=== PATIENT | female | born 1995 | race African-American/Black ===

== ENCOUNTER 2018-11-07 00:58 | Emergency (ER) | payer BC ==
[2018-11-07 02:51] LABS: ABS Eosinophils 0.1 10^3/ul (0-0.6); ABS Lymphocytes 0.4 10^3/ul (1.0-4.8); ABS Monocytes 0.5 10^3/ul (0-0.8); ABS Neutrophils 7.9 10^3/ul (1.5-7.7); Eosinophil % 0.6 %; Hematocrit 42 % (35-47); Hemoglobin 13.9 g/dL (12.0-16.0); Lymphocyte % 4.7 %; Mean Corpuscular HGB Conc 34 g/dL (31-36); Mean Corpuscular Hemoglobin 29 pg (27-31); Mean Corpuscular Volume 87 fL (80-97); Mean Platelet Volume 8.9 fL (7.4-10.4); Platelet Count 219 10^3/uL (150-450); Red Blood Count 4.77 10^6 /uL (3.70-4.87); Red Cell Distribution Width 14 % (10-15); White Blood Count 8.9 10^3/uL (3.5-10.8)
[2018-11-07 03:00] LABS: INR 1.05 (0.82-1.09)
[2018-11-07 03:10] LABS: ALT 25 U/L (7-52); AST 21 U/L (13-39); Albumin 4.3 g/dL (3.2-5.2); Albumin/Globulin Ratio 1.4 (1-3); Alkaline Phosphatase 71 U/L (34-104); Anion Gap 9 mmol/L (2-11); BUN/Creatinine Ratio 22.5 (8-20); Blood Urea Nitrogen 20 mg/dL (6-24); CO2 Carbon Dioxide 25 mmol/L (22-32); Calcium 9.5 mg/dL (8.6-10.3); Chloride 105 mmol/L (101-111); EGFR Non-African American 79.3 (>60); Glucose 107 mg/dL (70-100); Potassium 3.9 mmol/L (3.5-5.0); Sodium 139 mmol/L (135-145); Total Protein 7.3 g/dL (6.4-8.9)
[2018-11-07] MEDS ORDERED: Ondansetron TAB* 4 MG PO ONE (03:16)
[2018-11-07 03:17] LABS: HCG Pregnancy < 0.60 mIU/mL
[2018-11-07 03:32] LABS: Acetaminophen < 15 mcg/mL; Salicylate < 2.50 mg/dL (<30)
--- NOTE | 2018-11-07 03:42 | ED ---
Abdominal Pain/Female - HPI Summary HPI Summary: This patient is a 23 year old F presenting to [facility] accompanied by male friend with a chief complaint of nausea and vomiting since 2129 today, 11/06/18. Symptoms aggravated by noting. Symptoms alleviated by nothing. Patient reports taking Keflex (never taken before) starting this morning due to a cyst in right axilla. Pt reports the 2nd dose at 1715 made her nauseous. Pt reports mild cramping lower abdominal pain. Pt reports she took Tylenol for the concussion that was 10/28/18-10/31/18 but none recently. Patient denies diarrhea , fevers, abnormal bleeding, discharge, dysuria. Pt denies any medical problems and shx: adenoids removed. - History of Current Complaint Chief Complaint: EDNauseaVomitDiarrh Stated Complaint: NAUSEA DUE TO MEDS PER PT Time Seen by Provider: 11/07/18 01:57 Hx Obtained From: Patient Onset/Duration: Lasting Hours, Still Present Timing: Constant Pain Intensity: 8 Pain Scale Used: 0-10 Numeric Aggravating Factor(s): Nothing Alleviating Factor(s): Nothing Associated Signs and Symptoms: Positive: Nausea, Vomiting, Other: - abdominal pain; denies dysuria. Negative: Fever, Vaginal Bleeding, Vaginal Discharge, Diarrhea Allergies/Adverse Reactions: Allergies Allergy/AdvReac Type Severity Reaction Status Date / Time No Known Allergies Allergy Verified 12/14/16 12:42 Home Medications: Home Medications Cephalexin CAP* [Keflex 500 CAP*] 500 mg PO TID 11/07/18 [History Confirmed ] PMH/Surg Hx/FS Hx/Imm Hx Sensory History: Denies: Hx Legally Blind, Hx Deafness Opthamlomology History: Denies: Hx Legally Blind EENT History: Denies: Hx Deafness - Surgical History Surgery Procedure, Year, and Place: adenoidectomy Infectious Disease History: No Infectious Disease History: Denies: Traveled Outside the [place] in Last 30 Days - Social History Alcohol Use: Rare Hx Substance Use: No Substance Use Type: Reports: None Hx Tobacco Use: No Smoking Status (MU): Never Smoked Tobacco Review of Systems Negative: Fever Positive: Abdominal Pain, Vomiting, Nausea. Negative: Diarrhea Positive: other - denies abnormal bleeding, discharge. Negative: dysuria All Other Systems Reviewed And Are Negative: Yes Physical Exam - Summary Physical Exam Summary: Constitutional: Well-developed, Well-nourished, Alert. (-) Distressed Skin: Warm, Dry (no cyst of axilla noted) HENT: Normocephalic; Atraumatic Eyes: Conjunctiva normal Neck: Musculoskeletal ROM normal neck. (-) JVD, (-) Stridor, (-) Nuchal rigidity Cardio: Rhythm regular, rate normal, Heart sounds normal; Intact distal pulses; Radial pulses are 2+ and symmetric. (-) Murmur Pulmonary/Chest wall: Effort normal. (-) Respiratory distress, (-) Wheezes, (-) Rales Abd: Soft, (-) tenderness, (-) Distension, (-) Guarding, (-) Rebound Musculoskeletal: (-) Edema Lymph: (-) Cervical adenopathy Neuro: Alert, Oriented x3 Psych: Mood and affect Normal Triage Information Reviewed: Yes Vital Signs On Initial Exam: Initial Vitals Temp Pulse Resp BP Pulse Ox 98.5 F 72 16 137/80 100 11/07/18 01:04 11/07/18 01:04 11/07/18 01:04 11/07/18 01:04 11/07/18 01:04 Vital Signs Reviewed: Yes Diagnostics - Vital Signs Vital Signs Temp Pulse Resp BP Pulse Ox 11/07/18 01:04 98.5 F 72 16 137/80 100 - Laboratory Lab Results: Lab Results 11/07/18 11/07/18 11/07/18 Range/Units 02:29 02:29 02:29 WBC 8.9 (3.5-10.8) 10^3/uL RBC 4.77 (3.70-4.87) 10^6 /uL Hgb 13.9 (12.0-16.0) g/dL Hct 42 (35-47) % MCV 87 (80-97) fL MCH 29 (27-31) pg MCHC 34 (31-36) g/dL RDW 14 (10-15) % Plt Count 219 (150-450) 10^3/uL MPV 8.9 (7.4-10.4) fL Neut % (Auto) 88.7 % Lymph % (Auto) 4.7 % Orange % (Auto) 5.8 % Eos % (Auto) 0.6 % Baso % (Auto) 0.2 % Absolute Neuts (auto) 7.9 H (1.5-7.7) 10^3/ul Absolute Lymphs (auto) 0.4 L (1.0-4.8) 10^3/ul Absolute Monos (auto) 0.5 (0-0.8) 10^3/ul Absolute Eos (auto) 0.1 (0-0.6) 10^3/ul Absolute Basos (auto) 0.0 (0-0.2) 10^3/ul Absolute Nucleated RBC 0.0 10^3/ul Nucleated RBC % 0.0 INR (Anticoag Therapy) 1.05 (0.82-1.09) Sodium 139 (135-145) mmol/L Potassium 3.9 (3.5-5.0) mmol/L Chloride 105 (101-111) mmol/L Carbon Dioxide 25 (22-32) mmol/L Anion Gap 9 (2-11) mmol/L BUN 20 (6-24) mg/dL Creatinine 0.89 (0.51-0.95) mg/dL Est GFR ( Amer) 96.0 (>60) Est GFR (Non-Af Amer) 79.3 (>60) BUN/Creatinine Ratio 22.5 H (8-20) Glucose 107 H (70-100) mg/dL Calcium 9.5 (8.6-10.3) mg/dL Total Bilirubin 0.50 (0.2-1.0) mg/dL AST 21 (13-39) U/L ALT 25 (7-52) U/L Alkaline Phosphatase 71 (34-104) U/L Total Protein 7.3 (6.4-8.9) g/dL Albumin 4.3 (3.2-5.2) g/dL Globulin 3.0 (2-4) g/dL Albumin/Globulin Ratio 1.4 (1-3) Beta HCG, Quant < 0.60 mIU/mL Salicylates < 2.50 (<30) mg/dL Acetaminophen < 15 mcg/mL Result Diagrams: 11/07/18 02:29 11/07/18 02:29 Lab Statement: Any lab studies that have been ordered have been reviewed, and results considered in the medical decision making process. Re-Evaluation - Re-Evaluation First Eval Re-Evaluation Time: 04:37 Comment: Pt tolerated PO under Zofran. Abdominal Pain Fem Course/Dx - Course Course Of Treatment: 23-year-old female who presents with nausea vomiting and cramping abdominal pain for 1 day. Physical exam with a well-appearing female, mild lower abdominal tenderness. - Patient has been taking Keflex for a cyst under her right armpit. Nausea could be secondary to Keflex use however she tolerated the keflex this am. - labs unremarkable. Had been taking tylenol for several days (last took 10/31), Neg tylenol level here, normal LFTs and INR. - No RLQ tenderness or fevers to suggest appendicitis, no pelvic pain or discharge to suggest PID or TOA. Neg preg. No dysuria. symptoms could be 2/2 early gastroenteritis vs sensitivity to keflex. given zofran ODT here, tolerated PO. Plan for discharge w zofran, return for worsening symptoms. Advised to eat w keflex. - Diagnoses Provider Diagnoses: Nausea & vomiting Discharge ED - Sign-Out/Discharge Documenting (check all that apply): Patient Departure - discharge Patient Received Moderate/Deep Sedation with Procedure: No - Discharge Plan Condition: Stable Disposition: HOME Prescriptions: Ondansetron ODT TAB* [Zofran 4 MG Odt TAB*] 4 mg PO Q8H PRN 4 Days #12 tab.odt PRN Reason: Nausea/Vomiting Patient Education Materials: Acute Nausea and Vomiting (ED) Referrals: [facility] [Primary Care Provider] - 3 Days Additional Instructions: You were seen in the emergency department for nausea and vomiting. Your labs not show any evidence of infection. You can take Zofran as needed for nausea and vomiting. Please take food with your antibiotics. If any studies were not completed at the time of discharge you will be called with the relevant results. Please follow up with your primary care doctor in next 2-3 days and return to emergency department for continued vomiting, abdominal pain, or concerning symptoms. It was a pleasure taking care of you today. - Billing Disposition and Condition Condition: STABLE Disposition: Home - Attestation Statements Document Initiated by Scribe: Yes Documenting Scribe: Terri Butler Provider For Whom Glenny is Documenting (Include Credential): Dr. Karla Zacarias MD Scribe Attestation: I, Terri Butler, scribed for Dr. Karla Zacarias MD on 11/07/18 at 0500. Scribe Documentation Reviewed: Yes Provider Attestation: The documentation as recorded by the scribe, Terri Butler accurately reflects the service I personally performed and the decisions made by me, Dr. Karla Zacarias MD Status of Scribe Document: Viewed
[2018-11-07] MEDS ORDERED: Ondansetron ODT TAB* 4 MG SL ONE (03:57)
[2018-11-07] MEDS ORDERED: Ondansetron ODT TAB* 4 MG PO ONE (04:37)
[2018-11-07 04:51] VITALS: BP 116/59
== END 2018-11-07 04:50 | disposition home or self-care (01) ==
LOC: ED 00:58
DX: R11.2 Nausea with vomiting, unspecified (principal)
CPT/HCPCS: 36415; 80053; 80329; 84702; 85025; 85610; 99283; A9270-GY; G0480